=== PATIENT | female | born 1990 | race Two or more races ===

== ENCOUNTER 2025-03-26 21:10 | Emergency (ER) | payer OTHER ==
[~2025-03-26] VITALS: Ht 167.6 cm; Wt 65.8 kg
[2025-03-26] MEDS ORDERED: SODIUM CL 0.9% 25 ML IV.SOLN. IV STA (21:29)
[2025-03-26 22:22] LABS: BASO % 0.3 % (0.1-1.2); EOS # 0.07 (0.04-0.54); EOS % 0.7 % (0.7-7.0); LYMPH # 3.02 (1.18-3.74); LYMPH % 29.8 % (19.3-53.1); MEAN PLATELET VOLUME 9.50 fl (9.4-12.4); MONO # 0.87 (0.24-0.82); MONO % 8.6 % (4.7-12.5); NEUT # 6.13 (1.56-6.13); NEUT % 60.4 % (34.0-71.1); RED CELL DISTRIBUTION WIDTH 11.8 % (11.6-14.4)
[2025-03-27 02:12] LABS: URINE APPEARANCE Cloudy; URINE BILIRRUBIN Negative (NEGATIVE); URINE BLOOD Trace; URINE COLOR Yellow; URINE GLUCOSE Negative (NEGATIVE); URINE KETONE 15 (NEGATIVE); URINE LEUKOCYTE Negative; URINE NITRATE Negative; URINE PROTEIN Negative (NEGATIVE); URINE UROBILINOGEN 1.0 E.U./dl
[2025-03-27 02:16] LABS: URINE BACTERIA 752.2 uL (0.0-1933); URINE EPITHELIAL CELLS 9.8 uL (0.0-38.8); URINE RBC 11.7 uL (0.0-20.8); URINE WBC 36.4 uL (0.0-23.2)
[2025-03-27 02:35] LABS: TYPE CELLS SQUAMOUS; URINE CAST 0.00 uL (0.0-1.40)
== END 2025-03-27 01:21 | disposition home or self-care (01) ==
LOC: ER 21:10
PROVIDERS: General Practice
DX: O20.8 Other hemorrhage in early pregnancy (principal); Z3A.08 8 weeks gestation of pregnancy